=== PATIENT | female | born 1940 | race Caucasian/White ===

== ENCOUNTER → 2016-06-15 | Day surgery (SDC) | payer MEDICARE, BC ==
--- NOTE | 2016-06-14 16:55 | TH ---
cc: VINI ADDISON M.D. DATE 06/15/2015 DATE OF 1940 PREOPERATIVE DIAGNOSIS Basal cell carcinoma located on the upper lip and left nose. HISTORY OF PRESENT ILLNESS The patient is a 74-year-old female who has positive margins on the upper lip with tissue of 3 cm. PAST MEDICAL HISTORY Otherwise remarkable for severe photodamaged skin. MEDICATIONS Include: 1. Furosemide. 2. Potassium. 3. Iodine. 4. Diovan. 5. Calcium. 6. [place] fatty acids. 7. Co-Q10. 8. Vitamin D. 9. . 10. Simvastatin. SOCIAL HISTORY Habits are benign. REVIEW OF SYSTEMS Unremarkable. PHYSICAL EXAM CONSTITUTIONAL: General appearance. The patient is a well-developed female in no acute distress. Body habitus is within normal limits. There appear to be no deformities. Appears to have attention to grooming. HEENT: Eyes Conjunctivae and lids are within normal anatomical limits. The pupils are reactive to light and accommodation, size, and symmetry. There is no evidence of exudate, hemorrhage, or vessel change. Ears, mouth, nose, and throat The external inspection of the ears and nose fails to demonstrate any pathology, scars or masses. Nasal mucosa, septum, and turbinates appear to be well hydrated as well as the lips and gums. No evidence of masses in the hypopharynx or submental area. RESPIRATORY: The patient shows no evidence of intercostal refractions. Otherwise, lungs are clear to auscultation without any abnormal sounds or rubs. CARDIOVASCULAR: The patient has a normal heart rate and rhythm. There is no evidence of noticed carotid bruits. Femoral pulses and pedal pulses in extremities are also within normal limits. GASTROINTESTINAL/ABDOMEN: Soft with no evidence of masses or tenderness. Unable to palpate the liver or spleen. No evidence of hernia. MUSCULOSKELETAL: Appears to be reasonable range of motion on the head, neck, spine, ribs, pelvis, right upper extremity, left upper extremity, right lower extremity, and left lower extremity. The muscle strength and tone appears to be equal and within accepted limits. SKIN: There is no rashes, lesions, or ulcers on the trunk, back, and extremities. NEUROLOGICAL: Examination is grossly normal. PSYCHIATRIC: The patient appears to have good orientation of time, place, and person. Does not appear to have any mood effects of depression, anxiety, or agitation. SKIN: This lesion in question is located on the upper portion of the cutaneous lip plus the nasal field and measures about 1.0-1.5 cm. PLAN The plan is to proceed with the excision with the proper reconstruction. MD RINA Hung/VIOLA /4:09 PM /4:36 PM
[~2016-06-15] MED LIST: ACETAMINOPHEN 1000 MG/100 ML VIAL IV ONE; ACETAMINOPHEN/HYDROcodone 325 MG/5 MG TAB ONE; BUPIVACAINE/EPINEPHRINE 0.25% 50 ML VIAL ONE; LACTATED RINGER'S 1000 ML INJ 1,000 ML ONE; LIDOCAINE 1%/EPINEPHrine 1:100,000 SOLN 20 ML VIAL ONE; MEPERIDINE HCL 25 MG/ML VIAL ONE; MIDAZOLAM HCL 2 MG/2 ML VIAL ONE; NEOMYCIN/POLYMYXIN/BACITRACIN OINT 15 GM TUBE ONE; ONDANSETRON HCL 4 MG/2 ML VIAL IV PUSH ONE; PROPOFOL 200 MG/20 ML AMP IV ONE; ceFAZolin INJ 1,000 MG VIAL ONE
--- NOTE | 2016-06-15 13:51 | TN ---
cc: YUNIOR SCOTT M.D. DATE OF SURGERY: 06/15/2016 PREOPERATIVE DIAGNOSIS Biopsy of carcinoma located on the left nasal ala and left upper lid. OPERATIVE PROCEDURES: 1. Wide local excision. Resultant primary defect on the nasal ala of 1.5 cm x 1 cm secondary defect is 2.5 cm x 1.5 cm this required a V to Y tissue rearrangement construction. frozen section negative. 2. Wide local excision of left upper lip primary defect 1.5 cm, second defect of 3 cm x 1.5 cm SURGEON Yunior Scott MD ANESTHESIA Was LMA general ESTIMATED BLOOD LOSS: Minimal. COMPLICATIONS: None. PROCEDURE: The patient was properly consented, marked and anesthetized, skin sterilized with microsin, sterile draping applied. Local anesthetic was infiltrated. Wide local excision of nasal area was sent to pathology for frozen section with sterile pathology. This I proceeded performed a release of the right nasal ala V to Y flap, fasciocutaneous and inset utilizing 4-0 Monocryl suture of five of absorbing gut along the lines with the left upper lip. A wide local excision was carried out along the vermilion border of the left upper lip and the nasolabial fold was properly elevated and inset in the same suture material. Primary defect was 1.5cm with a secondary defect of 3 x 1.5cm. Good viability of the tissue was noted at the end of the case. The patient was awakened, extubated the operating room transferred back to postanesthesia care unit in stable condition. No complications appreciated. The patient tolerated the procedure fairly well. MD RINA Hung/lorna /12:40 PM /12:43 PM [place]
== END | disposition home or self-care (01) ==
LOC: ESDC 08:35
PROVIDERS: ATTEND Plastic Surgery
DX: C44.01 Basal cell carcinoma of skin of lip (principal); C44.311 Basal cell carcinoma of skin of nose
CPT/HCPCS: 00300; 14060; 88305; 88331; 88342; J0131; J0690; J2175; J2250; J2405; J3010; J7120